=== PATIENT | female | born 1965 | race African-American/Black ===

== ENCOUNTER 2019-07-19 08:12 | Emergency (ER) | payer OTHER ==
[~2019-07-19] VITALS: Ht 170.2 cm; Wt 74.8 kg
[2019-07-19 08:16] VITALS: BP_SYST 125
--- NOTE | 2019-07-19 08:23 | NUR ---
Patient to ER bed 4 to gown for evaluation. Side rails up. Report given to Moreno MORGAN.
--- NOTE | 2019-07-19 08:25 | NUR ---
Patient is awake, alert, and oriented x4. Patient states she was lifting a firepit on Friday by bending at her waist and heard a crack. Patient now presents with pressure pain to her lower back 07/06.
--- NOTE | 2019-07-19 08:40 | NUR ---
ER Dr. Henao at bedside examining patient.
[2019-07-19] MEDS ORDERED: KETOROLAC TROMETHAMINE 30 MG VIAL IM ONE (08:45)
[2019-07-19] MEDS ORDERED: MORPHINE 4 MG/ML INJ. SYRINGE IM ONE (08:45)
--- NOTE | 2019-07-19 09:32 | NUR ---
Patient given written and verbal discharge instructions and verbalizes understanding. ER MD discussed with patient the results and treatment provided. Patient in stable condition. ID arm band removed. Rx of [place] 5-325 given. Patient educated on pain management and to follow up with PMD. Pain Scale 7/10. Opportunity for questions provided and answered. Medication side effect fact sheet provided.
[2019-07-19 09:34] VITALS: BP_SYST 138
== END 2019-07-19 09:34 | disposition home or self-care (01) ==
LOC: SED 08:12
DX: S39.012A Strain of muscle, fascia and tendon of lower back, initial encounter (principal); F17.200 Nicotine dependence, unspecified, uncomplicated; X58.XXXA Exposure to other specified factors, initial encounter; Y93.89 Activity, other specified; Y92.89 Other specified places as the place of occurrence of the external cause; Y99.8 Other external cause status
CPT/HCPCS: 72100; 96372; 99283; J1885; J2270

== ENCOUNTER 2019-08-05 11:33 | Emergency (ER) | payer OTHER ==
[~2019-08-05] VITALS: Ht 170.2 cm; Wt 74.8 kg
[2019-08-05 11:33] VITALS: BP_SYST 117
--- NOTE | 2019-08-05 11:33 | NUR ---
Patient triaged and placed in waiting room. VSS and patient appears in no acute distress at this time. Accompanied by FAMILY, awaiting available bed, and MD notified of need for MSE.
--- NOTE | 2019-08-05 14:30 | NUR ---
CALLED FOR ER BED 7, UNABLE TO LOCATE PT IN WAITING ROOM
--- NOTE | 2019-08-05 15:17 | NUR ---
CALLED FOR BED 7, UNABLE TO LOCATE PT.
--- NOTE | 2019-08-05 15:20 | NUR ---
Pt brought by self,A&Ox4, pt presents to ER with cough and congestion x 2 weeks , also c/o headache, afebrile, skin pink and warm , cap refill <3.
--- NOTE | 2019-08-05 15:20 | NUR ---
BROUGHT BACK TO BED #7 AND REPORT GIVEN TO EFREN
--- NOTE | 2019-08-05 15:45 | NUR ---
DR PAINTER AT BEDSIDE FOR EVALUATION
[2019-08-05] MEDS ORDERED: ALBUTEROL SULFATE 0.083% 2.5 MG/3 ML VIAL.NEB INH ONE (16:30)
[2019-08-05] MEDS ORDERED: AMOXICILLIN/CLAVULANATE POTASSIUM 875 MG TABLET PO ONE (16:30)
[2019-08-05] MEDS ORDERED: PROMETHAZINE HCL/CODEINE 6.25-10 mg/5 mL UDC PO ONE (16:30)
--- NOTE | 2019-08-05 16:40 | NUR ---
PT WENT TO CARDIOPULMONARY FOR RESP TREATMENT, PT HAS STRONG SMELL OF MARIJUANA. NO SOB, NO DYSPNEA
--- NOTE | 2019-08-05 16:48 | NUR ---
TAKEN TO WAITING ROOM AFTER BREATHING TREATMENT
--- NOTE | 2019-08-05 17:20 | NUR ---
Patient given written and verbal discharge instructions and verbalizes understanding. ER MD discussed with patient the results and treatment provided. Patient in stable condition. ID arm band removed. Rx of Augmentin and Promethazine given. Patient educated on pain management and to follow up with PMD. Pain scale 0/10. Opportunity for questions provided and answered. Medication side effect fact sheet provided.
[2019-08-05 17:37] VITALS: BP_SYST 112
== END 2019-08-05 17:37 | disposition home or self-care (01) ==
LOC: SED 11:33
DX: J40 Bronchitis, not specified as acute or chronic (principal); Z90.49 Acquired absence of other specified parts of digestive tract; I10 Essential (primary) hypertension
CPT/HCPCS: 71045; 94640; 99283; J7613

== ENCOUNTER 2020-07-21 15:22 | Emergency (ER) | payer OTHER, MEDICAID ==
[~2020-07-21] VITALS: Ht 170.2 cm; Wt 81.2 kg
[2020-07-21 15:30] VITALS: BP_SYST 152
[2020-07-21] MEDS ORDERED: KETOROLAC TROMETHAMINE 30 MG VIAL IM ONE (16:00)
[2020-07-21 16:13] VITALS: BP_SYST 152
== END 2020-07-21 16:13 | disposition home or self-care (01) ==
LOC: SED 15:22
DX: G89.29 Other chronic pain (principal); M25.562 Pain in left knee; R25.2 Cramp and spasm; I10 Essential (primary) hypertension
CPT/HCPCS: 96372; 99283; J1885